=== PATIENT | female | born 1980 | race African-American/Black ===

== ENCOUNTER 2016-10-17 17:53 | Emergency (ER) | payer OTHER ==
[~2016-10-17] VITALS: Ht 157.5 cm; Wt 99.8 kg
[2016-10-17 18:05] VITALS: BP 119/80
[2016-10-17] MEDS ORDERED: MOBIC15 MG PO (19:04)
== END 2016-10-17 19:22 | disposition home or self-care (01) ==
LOC: ER 17:53
DX: S93.402A Sprain of unspecified ligament of left ankle, initial encounter (principal); W07.XXXA Fall from chair, initial encounter; Y93.89 Activity, other specified; Y92.89 Other specified places as the place of occurrence of the external cause; Y99.9 Unspecified external cause status